=== PATIENT | female | born 1990 | race Caucasian/White ===

== ENCOUNTER 2018-01-14 11:32 | Inpatient (IN) ==
[2018-01-14] MEDS ORDERED: Ondansetron 4 MG/2 ML VIAL IVP PRN (11:44)
[2018-01-14] MEDS ORDERED: Famotidine 20 MG/2 ML VIAL IVP PRN (11:44)
[2018-01-14] MEDS ORDERED: *HR* Nalbuphine 10 MG/ML AMPUL IVP PRN (11:44)
[2018-01-14] MEDS ORDERED: Naloxone 0.4 MG/ML INJ IVP PRN (11:44)
[2018-01-14] MEDS ORDERED: Lidocaine 1% 20 ML MDV INFILT PRN (11:44)
[2018-01-14] MEDS ORDERED: Ringers Solution, Lactated 1,000 ML IVC SCH (11:45)
[2018-01-14] MEDS ORDERED: Ringers Solution, Lactated 1,000 ML ONE (11:46)
--- NOTE | 2018-01-14 11:49 | OB/GYN History & Physical ---
Date of Encounter: 01/14/18 Time of Encounter: 11:46 Assessment and Plan (1) SROM (spontaneous rupture of membranes) Current visit: Yes Status: Acute Admit to labor and delivery Nubain and epidural and desired Anticipate . Dr. Drew aware plan of care (2) 39 weeks gestation of Current visit: Yes Status: Acute History of Present Illness HPI: Ms. Garcia is a 27 year old female presents to labor and delivery from Dr. Chamberlain's office spontaneous rupture of membranes. Patient reports uncomplicated course. History of previous retained placenta and hemorrhage with first delivery. No other health conditions noted. Labs: A positive, rubella and varicella immune, GBS negative, all other serologies negative Past Med Surg Social Fam HX - Past Medical History Source: patient Medical history: no medical history Psychiatric history: no psych history - Past Surgical History Surgical History: other (ovarian cyst removal, placenta extraction. ) Obstetrical History - Pregnancies : 6 Para: 4 Term: 4 : 0 Ab's: 1 Livin Exam - Constitutional Constitutional: well developed, well nourished, no acute distress, average body habitus - Neck Neck exam: full ROM - Lungs Respiratory exam: CTAB - Cardiovascular Cardiovascular exam: RRR - Abdomen Abdomen: Present: bowel sounds normal, gravid, non tender - Extremities Extremities exam: normal capillary refill, normal inspection - Vagina Vagina: Present: normal moisture - Cervix Dilation: 8 (per RN ) Effacement: 100 Results All other labs normal. - VTE Reasons for not Prescribing Prophylaxis: Treatment not Indicated - Low risk for VTE
[2018-01-14] MEDS ORDERED: *HR* FentaNYL (PF) 100 MCG/2 ML VIAL ONE (12:19)
[2018-01-14] MEDS ORDERED: Bupivacaine-MPF 0.25% 10 ML VIAL ONE (12:19)
[2018-01-14 12:20] LABS: Basophils % 0.3 %; Eosinophils # 0.1 K/mcL (0.0-0.6); Eosinophils % 1.3 %; Hematocrit 30.2 % (35.3-44.9); Hemoglobin 9.2 g/dL (11.5-15.4); Immature Granulocytes % 2.1 % (0-4); Lymphocytes # 1.6 K/mcL (0.6-4.6); Lymphocytes % 18.2 %; Mean Corpuscular HGB Conc 30.5 g/dL (31.6-35.5); Mean Corpuscular Hemoglobin 24.1 pg (28.0-33.3); Mean Corpuscular Volume 79.3 fL (83.0-100.0); Mean Platelet Volume 11.1 fL (9.4-12.4); Monocytes # 0.5 K/mcL (0.0-1.3); Monocytes % 6.1 %; Neutrophils # 6.3 K/mcL (1.6-8.9); Platelet Count 282 K/mcL (140-400); Red Blood Count 3.81 M/mcL (3.82-4.97); Red Cell Distribution Width 16.6 % (11.5-14.5)
[2018-01-14] MEDS ORDERED: Epidural Premix (fent/bupiv) 110 ML EP ONE ×2 (12:47→19:17)
[2018-01-14 12:48] LABS: Amphetamine Screen,Urine Negative ng/mL (Cutoff=1000); Barbiturate Screen,Urine Negative ng/mL (Cutoff=200); Benzodiazepines Screen,Urine Negative ng/mL (Cutoff=200); Cannabinoid Screen,Urine Negative ng/mL (Cutoff = 50); Cocaine Screen,Urine Negative ng/mL (Cutoff= 300); Opiate Screen,Urine Negative ng/mL (Cutoff=300); Phencyclidine Screen,Urine Negative ng/mL (Cutoff=25)
[2018-01-14] MEDS ORDERED: Bupivacaine-MPF 0.25% 10 ML VIAL EP ONE (12:53)
[2018-01-14] MEDS ORDERED: *HR* FentaNYL (PF) 100 MCG/2 ML VIAL EP ONE (12:53)
[2018-01-14] MEDS ORDERED: EPHEDrine 50 MG/ML VIAL IVP PRN (12:53)
--- NOTE | 2018-01-14 12:57 | Anesthesia Evaluation PreOp ---
Date of Encounter: 01/14/18 Time of Encounter: 12:55 - Past History Planned Operation: jia Cardiac History: Denies any Significant Hx Pulmonary History: Denies Any Significant HX RESIDENT PROGRAMS ASSISTANT History: Denies Any Significant HX Other Medical History: Denies Any Significant HX Anesthesia History: No Prior Anesthetic Complications, Past Anesthesia : Yes (g5) Alcohol Use: none Drug use: none - Meds/Allergy Pre-op Review Medications Reviewed: Yes Allergies Reviewed: Yes Beta Blockers on Current Med List: No Anesthesia Results - Labs 01/14/18 11:45 Anesthesia Exam Height: 63 Weight: 189 - HEENT Pupil (Motor): Pupils equal Mallampati: II Teeth: Normal Oral Opening: Greater than 3 - RESIDENT PROGRAMS ASSISTANT LOC: Oriented RESIDENT PROGRAMS ASSISTANT Motor: Normal RUE, Normal LUE, Normal RLE, Normal LLE, Normal Face RESIDENT PROGRAMS ASSISTANT Sensory: Normal: RUE, LUE, RLE, LLE, Face - Cardiac Rhythm: Regular Murmur: Systolic (blowing murmur noted, grade 2. Patient states she was told about it last and failed to followup with cardio) JVD: No Carotid Bruit: No - Pulmonary Breath Sounds: bilateral Clear Respiratory Effort: Symmetrical Anesthesia Assess/Plan ASA Score: 2 Modified Niki Scale for Level of Consciousness: Cooperative, oriented, and tranquil Anesthetic Plan: Regional Monitoring Plan: Standard Monitors
[2018-01-14] MEDS ORDERED: Epidural Premix (fent/bupiv) 110 ML EP SCH (13:00)
[2018-01-14] MEDS ORDERED: Oxytocin 20 units/ LR 1000 mL 20 UNIT/1,000 ML BAG IVC SCH ×4 (14:45→22:12)
[2018-01-14] MEDS ORDERED: Lidocaine -MPF 2% 5 ML VIAL ONE (16:36)
--- NOTE | 2018-01-14 17:44 | Anesthesia Procedures ---
Date of Encounter: 01/14/18 Time of Encounter: 12:59 Procedures: Anesthesia - Epidural/Spinal Patient ID/Chart reviewed: Yes Patient examined: Yes OB Eval: Contractions: Non-stressed pattern Consent Obtained: Yes Supplemental Oxygen: None/Room Air Site Prep: Aseptic Technique Patient position: upright Local Anesthetic: Lidocaine 1% Amount of Local Anesthetic used: 3 Touhy Needle Gauge: 18 Touhy Needle Depth (cm): 6 Catheter Depth at Skin (cm): 12 Test Dose (1.5% Lido + Epi): Volume given (mls): 3 Test Dose Result: Negative Loading Dose: 0.25% Marcaine (mls): 6 Loading Dose: Fentanyl (mcg): 100 Loading Dose Administered: Thru Touhy Needle Infusion Med: 0.125% Bupivacaine w/ 2 mcg/ml Fentanyl Infusion Rate (mls/hr): [address]: Tegaderm Interspace Used: L2-L3 Loss of Resistance (MANISHA): Yes Blood: No CSF: No Paresthesia: No
[2018-01-14] MEDS ORDERED: Acetaminophen 325 MG TABLET PO ONE (19:27)
[2018-01-14] MEDS ORDERED: *HR* Ropivacaine/PF 0.2% 20 ML VIAL ONE (20:47)
[2018-01-14] MEDS ORDERED: Acetaminophen 325 MG TABLET PO PRN (22:12)
--- NOTE | 2018-01-14 22:12 | OB/GYN Procedure Note ---
Delivery - Delivery Date: 01/14/18 Provider: Erika Stanton Intrapartum events: none Delivery induction: none Delivery augmentation: pitocin Delivery monitor: external FHT, external uterine Anesthesia: epidural Estimated Blood Loss: 600 - Infant (s) Infant A Infant Delivery Date: 01/14/18 Delivery Time: 21:13 Presentation: vertex Position: OA Route of delivery: Gender: Female Viability: Viable Pounds: 8 Ounces: 8 Weight Gram: 3880 kg at 1 minute: 7 at 5 mins: 9 Shoulder Dystocia: encountered Shoulder Dystocia Maneuvers: Donna maneuver, suprapubic pressure Shoulder dystocia time elapsed: 76 seconds Specimens collected: cord blood Placenta: spontaneous Cord: nuchal cord, 3 umbilical vessels, nuchal reduced - Repair Episiotomy: none Laceration Description: Superficial - Complications Delivery complications: none Delivery comments: Admitted for term with spontaneous rupture of membranes, oxytocin augmentation, progressed to complete. Maternal bearing down efforts of liveborn female. Vertex delivered OA, shoulder dystocia identified, patient put in Donna position, unable to deliver anterior shoulder, patient replaced and Donna position with suprapubic pressure, delivery of anterior shoulder and recognition of loose nuchal cord, nuchal cord manually reduced, shoulders and body easily followed at that time. Infant placed on maternal abdomen for drying and stimulation Apgars 7/9. Placenta delivered spontaneously , with trailing membranes noted, membranes delivered but questionable tearing of membranes, fundus massaged until firm no further bleeding noted on the decision to leave uterus unexplored made, due to no bleeding and patient discomfort. Superficial perineal lacerations noted hemostatic EBL 600. - Disposition Mom disposition: stable in LDR [place] disposition: stable in LDR
[2018-01-14] MEDS: *HR* HYDROcodone/Acet 5/325 mg TABLET PO PRN (23:34)
[2018-01-15] MEDS ORDERED: Metoclopramide 10 MG/2 ML VIAL IVP PRN (01:58)
[2018-01-15 02:21] LABS: Basophils % 0.2 %; Eosinophils # 0.1 K/mcL (0.0-0.6); Hematocrit 23.8 % (35.3-44.9); Immature Granulocytes % 0.8 % (0-4); Lymphocytes # 1.2 K/mcL (0.6-4.6); Lymphocytes % 13.8 %; Mean Corpuscular HGB Conc 31.9 g/dL (31.6-35.5); Mean Corpuscular Volume 78.3 fL (83.0-100.0); Mean Platelet Volume 9.9 fL (9.4-12.4); Monocytes # 0.6 K/mcL (0.0-1.3); Monocytes % 7.3 %; Neutrophils # 6.5 K/mcL (1.6-8.9); Platelet Count 210 K/mcL (140-400); Red Blood Count 3.04 M/mcL (3.82-4.97); Red Cell Distribution Width 16.4 % (11.5-14.5); Segmented Neutrophils % 76.9 %
[2018-01-15 02:23] LABS: Hemoglobin 7.6 g/dL (11.5-15.4)
[2018-01-15 02:39] LABS: Alanine Aminotransferase 6 Units/L (7-52); Aspartate Amino Transferase 16 Units/L (13-39); BUN/Creatinine Ratio 10 (6-26); Blood Urea Nitrogen 5 mg/dL (6-20); Lactate Dehydrogenase 202 Units/L (140-271); Uric Acid 5.8 mg/dL (2.3-7.6); eGFR For African Americans > 60 (> 60); eGFR For Non-African Americans > 60 (> 60)
[2018-01-15] MEDS: Prenatal Vit/FA 1 EACH TABLET PO SCH (08:22)
[2018-01-15] MEDS: *HR* HYDROcodone/Acet 5/325 mg TABLET PO PRN ×3 (08:22→22:30)
[2018-01-15] MEDS ORDERED: Ringers Solution, Lactated 1,000 ML IVC ONE (10:49)
[2018-01-15] MEDS: Acetaminophen/Butalbital/CaffeineTABLET PO PRN (12:19)
--- NOTE | 2018-01-15 20:49 | OB/GYN Progress Note ---
Date of Encounter: 01/15/18 Time of Encounter: 10:00 - Assessment and Plan (1) Vaginal delivery Current Visit: Yes Status: Acute Continue routine care Ice to perineum when necessary Dermoblast to perineum when necessary Anticipate D/C to home tomorrow (2) headache Current Visit: Yes Status: Acute Anesthesia to evaluate for potential spinal headache 1 L LR bolus ordered Fioricet ordered when necessary Subjective - Subjective Interval history: Feeling well. Out of bed without dizziness. Positive perineal discomfort- using ice pack. Cramping minimal, using ibuprofen. Bottlefeeding. Voiding without difficulty. Passing flatus, no BM yet. Tolerating regular diet. Does complain of a headache that is the "worst headache she has had in a while". Patient reports a history of migraines. Patient reports: appetite normal, voiding normally, no pain well controlled, no ambulating normally [place]: doing well, bottle feeding Objective - Latest Vital Signs Latest vital signs: Vital Signs Temp Pulse Resp BP Pulse Ox 01/15/18 20:02 98.2 F 69 16 134/80 97 01/15/18 15:42 97.6 F 96 16 131/90 01/15/18 15:35 16 01/15/18 08:27 16 01/15/18 08:19 98.3 F 83 12 113/76 97 01/15/18 01:40 98.3 F 87 14 123/80 97 01/15/18 00:40 98.4 F 72 14 131/83 98 01/14/18 23:45 98.7 F 93 16 130/85 99 Intake and Output 01/15/18 01/15/18 01/15/18 07:59 15:59 23:59 Intake Total 900 / 900 300 / 300 Output Total 1350 / 1350 1900 / 1900 1500 / 1500 Balance -1350 / -1350 -1000 / -1000 -1200 / -1200 Intake: Oral 900 / 900 300 / 300 Output: Urine 1350 / 1350 1900 / 1900 1500 / 1500 Other: # Urine Diapers 3 - Exam Lungs: bilateral: normal Chest: Normal S1, Normal S2 Extremities: Present: normal Abdomen: Present: normal appearance, soft, gravid Uterus: Present: normal, firm Uterus Position: At Umbilicus, Midline - Labs Labs: Laboratory Results - last 24 hr 01/15/18 01/15/18 02:09 02:09 WBC 8.4 RBC 3.04 L Hgb 7.6 L D Hct 23.8 L MCV 78.3 L MCH 25.0 L MCHC 31.9 RDW 16.4 H Plt Count 210 MPV 9.9 Immature Gran % 0.8 Seg Neutrophils % 76.9 Lymphocytes % 13.8 Monocytes % 7.3 Eosinophils % 1.0 Basophils % 0.2 Neutrophils # 6.5 Lymphocytes # 1.2 Monocytes # 0.6 Eosinophils # 0.1 Basophils # 0.0 BUN 5 L Creatinine 0.49 L Est GFR ( Amer) > 60 Est GFR (Non-Af Amer) > 60 BUN/Creatinine Ratio 10 Uric Acid 5.8 AST 16 ALT 6 L Lactate Dehydrogenase 202
[2018-01-16] MEDS: Acetaminophen/Butalbital/CaffeineTABLET PO PRN ×2 (01:16→08:57)
[2018-01-16] MEDS: *HR* HYDROcodone/Acet 5/325 mg TABLET PO PRN ×2 (04:43→11:04)
[2018-01-16] MEDS: Prenatal Vit/FA 1 EACH TABLET PO SCH (07:59)
[2018-01-16 08:03] VITALS: BP 129/85
--- NOTE | 2018-01-16 08:55 | Discharge Summary ---
Date of Encounter: 01/16/18 Time of Encounter: 08:51 - Discharge Diagnosis (1) Vaginal delivery Priority: Primary Status: Acute Comments: Reports LUNDY has returned, was relieved with Fioricet last night and has requested another dose this morning. VSS, denies visual disturbances and epigastric pain. Ambulating and voiding without difficulty. Has not had BM since delivery. States is having mild abdominal cramping, has been taking [place]. States Ibuprofen causes her to have nausea and vomiting. Lochia light and without clots.Baby in arms, states baby is bottle feeding well. Desires to go home today. (2) Anemia complicating the puerperium Priority: Secondary Status: Acute (3) headache Priority: Secondary Status: Acute - Discharge Medications Prescriptions: Acetaminophen/Butalbital/Caffe [Fioricet] 1 each PO Q6HR PRN 7 Days #28 tablet PRN Reason: Headache Docusate [Colace] 100 mg PO BID #20 capsule Ferrous Sulfate 325 mg PO BIDWM 30 Days #60 tablet Home Medications: Vitamins 1 tab PO DAILY 01/14/18 [History] Acetaminophen [Tylenol] 650 mg PO Q6HR PRN tablet 01/16/18 [Rx] Acetaminophen/Butalbital/Caffe [Fioricet] 1 each PO Q6HR PRN 7 Days #28 tablet 01/16/18 [Rx] Docusate [Colace] 100 mg PO BID #20 capsule 01/16/18 [Rx] Ferrous Sulfate 325 mg PO BIDWM 30 Days #60 tablet 01/16/18 [Rx] Allergies/Adverse Reactions: 3 Allergy/AdvReac Type Severity Reaction Status Date / Time ibuprofen Allergy Nausea Verified 01/14/18 15:00 sumatriptan [From Imitrex] Allergy Vomiting Verified 01/15/18 01:42 Data Procedures and tests throughout hospitalization: Laboratory Tests 01/14/18 01/14/18 01/15/18 11:45 11:50 02:09 WBC 8.7 8.4 RBC 3.81 L 3.04 L Hgb 9.2 L 7.6 L D Hct 30.2 L 23.8 L MCV 79.3 L 78.3 L MCH 24.1 L 25.0 L MCHC 30.5 L 31.9 RDW 16.6 H 16.4 H Plt Count 282 210 MPV 11.1 9.9 Immature Gran % 2.1 0.8 Seg Neutrophils % 72.0 76.9 Lymphocytes % 18.2 13.8 Monocytes % 6.1 7.3 Eosinophils % 1.3 1.0 Basophils % 0.3 0.2 Neutrophils # 6.3 6.5 Lymphocytes # 1.6 1.2 Monocytes # 0.5 0.6 Eosinophils # 0.1 0.1 Basophils # 0.0 0.0 BUN Creatinine Est GFR ( Amer) Est GFR (Non-Af Amer) BUN/Creatinine Ratio Uric Acid AST ALT Lactate Dehydrogenase Urine Opiates Screen Negative Ur Barbiturates Screen Negative Ur Phencyclidine Scrn Negative Ur Amphetamines Screen Negative U Benzodiazepines Scrn Negative Urine Cocaine Screen Negative U Marijuana (THC) Screen Negative 01/15/18 02:09 WBC RBC Hgb Hct MCV MCH MCHC RDW Plt Count MPV Immature Gran % Seg Neutrophils % Lymphocytes % Monocytes % Eosinophils % Basophils % Neutrophils # Lymphocytes # Monocytes # Eosinophils # Basophils # BUN 5 L Creatinine 0.49 L Est GFR ( Amer) > 60 Est GFR (Non-Af Amer) > 60 BUN/Creatinine Ratio 10 Uric Acid 5.8 AST 16 ALT 6 L Lactate Dehydrogenase 202 Urine Opiates Screen Ur Barbiturates Screen Ur Phencyclidine Scrn Ur Amphetamines Screen U Benzodiazepines Scrn Urine Cocaine Screen U Marijuana (THC) Screen Date of admission: 01/14/18 11:32 Primary care physician: Sindy Earl Consults: 01/14/18 22:12 Consult to [facility] Linker [CONS] Routine Comment: Vaginal delivery, consult needed Discharging clinician: Heidi Dallas - Patient Status Disposition: Home, Self-Care Condition: Good Functional capacity at discharge: independent ambulation Overall status at discharge: patient is progressing back to baseline - Discharge Instructions Follow Up With: Chely Montesinos CNP [Primary Care Provider] - Additional Instructions: Make appointment with Dr. Chamberlain for follow up within 6 weeks - Diet and Activity Activity: resume usual activities as tolerated Diet: advance to your usual diet Hospital Course Reason for admission: active labor, rupture of membranes Delivery: Episiotomy: none Laceration: none Other procedures: none complications: other Discharge diagnosis: IUP at term delivered baby: female Time spent discussing smoking cessation with patient: 3 to 10 minutes Time Attestation: Total time spent providing and/or coordinating discharge services: Exam - Constitutional Vitals: Temp Pulse Resp BP Pulse Ox 98.1 F 64 16 129/85 97 01/16/18 08:02 01/16/18 08:02 01/16/18 08:02 01/16/18 08:02 01/15/18 20:02 General appearance IM: A&O X 0, mild distress, pleasant, answers questions appropriately - Respiratory Respiratory exam: Present: CTAB - Cardiovascular Cardiovascular exam IM: Present: RRR - GI/Abdominal GI/Abdominal exam IM: normal bowel sounds, tenderness - Rectal Rectal exam: deferred - Uterine Tone: Firm Uterus Position: 1 Finger Below Umbilicus - Extremities Exam Extremities exam IM: Present: full ROM, normal inspection, radial pulses palpable and symmetrical - Neurological Exam Neurological exam: alert, oriented X3, reflexes normal
== END 2018-01-16 12:30 | disposition home or self-care (01) | DRG 560 ==
LOC: 1NENULAB 11:32 → 1NENUOBS 01-15 00:01
PROVIDERS: ADMIT Obstetrics & Gynecology; ATTEND Obstetrics & Gynecology